=== PATIENT | female | born 1965 | race Two or more races ===

== ENCOUNTER 2018-05-30 10:52 | Outpatient (CLI) | payer OTHER | END 2018-05-30 11:05 | disposition home or self-care (01) | LOC: MAMO-SONO 10:52 | DX: Z12.31 Encounter for screening mammogram for malignant neoplasm of breast (principal); N64.89 Other specified disorders of breast; E03.8 Other specified hypothyroidism; E04.1 Nontoxic single thyroid nodule ==

== ENCOUNTER 2018-06-20 07:38 | Outpatient (CLI) | payer OTHER | END 2018-06-20 07:50 | disposition home or self-care (01) | LOC: SONOGRAMA 07:38 | DX: R10.11 Right upper quadrant pain (principal) ==

== ENCOUNTER 2020-07-09 08:27 | Outpatient (CLI) | payer OTHER | END 2020-07-09 08:40 | disposition home or self-care (01) | LOC: MAMO-SONO 08:27 | PROVIDERS: ATTEND Obstetrics & Gynecology | DX: E04.1 Nontoxic single thyroid nodule (principal); Z12.31 Encounter for screening mammogram for malignant neoplasm of breast; R10.84 Generalized abdominal pain; N60.11 Diffuse cystic mastopathy of right breast; N60.12 Diffuse cystic mastopathy of left breast; Z85.850 Personal history of malignant neoplasm of thyroid ==

== ENCOUNTER 2020-07-24 08:10 | Outpatient (CLI) | payer OTHER | END 2020-07-24 08:12 | disposition HB | LOC: MAMO-SONO 08:10 → SONOGRAMA 08:10 → MAMO-SONO 08:12 | PROVIDERS: ATTEND General Practice | DX: R10.84 Generalized abdominal pain (principal) ==

== ENCOUNTER 2021-08-19 13:50 | Outpatient (CLI) | payer OTHER | END 2021-08-19 13:56 | disposition home or self-care (01) | LOC: MAMO-SONO 13:50 | PROVIDERS: ATTEND Obstetrics & Gynecology | DX: N64.59 Other signs and symptoms in breast (principal); Z12.31 Encounter for screening mammogram for malignant neoplasm of breast ==

== ENCOUNTER 2022-01-23 09:33 | Outpatient (CLI) | payer OTHER | END 2022-01-23 09:40 | disposition home or self-care (01) | LOC: SONOGRAMA 09:33 | PROVIDERS: ATTEND General Practice | DX: E80.7 Disorder of bilirubin metabolism, unspecified (principal); R10.9 Unspecified abdominal pain ==

== ENCOUNTER → 2022-01-23 10:20 | Outpatient (CLI) | payer OTHER | END | disposition home or self-care (01) | LOC: NUCLEAR 10:20 | PROVIDERS: ATTEND Internal Medicine Endocrinology, Diabetes & Metabolism | DX: M81.0 Age-related osteoporosis without current pathological fracture (principal) ==

== ENCOUNTER 2023-10-28 10:05 | Outpatient (CLI) | payer OTHER | END 2023-10-28 10:15 | disposition home or self-care (01) | LOC: MAMO-SONO 10:05 | PROVIDERS: ATTEND Surgery | DX: N60.11 Diffuse cystic mastopathy of right breast (principal); N60.12 Diffuse cystic mastopathy of left breast ==